=== PATIENT | female | born 1960 | race Caucasian/White ===

== ENCOUNTER 2017-09-03 14:35 | Inpatient (IN) | payer BC, OTHER ==
[2017-09-03] MEDS ORDERED: HUMULIN R 100 UNIT/ML VIAL SC ONE (14:36)
--- NOTE | 2017-09-03 15:10 | Emergency Department Record ---
History of Present Illness - General Chief Complaint: Chest Pain Stated Complaint: CHEST PAIN Time Seen by Provider: 09/03/17 14:55 Source: Patient Mode of Arrival: Ambulatory Limitations: No limitations - History of Present Illness Initial Comments: The patient is here due to upper mid back pain off and on for 4 days. The pain will last from minutes to hours and is not associated with nausea, vomiting, SOB , NARA, or sweating. She has had mild intermittent L arm and neck pain also but none now. There has been no injuries, fever, chills, cough, or any hx of similar problems. MD Complaint: Other Onset/Timin -: Days(s) Onset: During rest Pain Radiation: LUE, Neck, Other Severity: Mild Quality: Aching, Sharp Consistency: Constant, Intermittent Improves With: Nothing Worsens With: Nothing Treatments Prior to Arrival: None - Related Data Home Medications Medication Instructions Recorded Confirmed Last Taken No Home Med [NO HOME MEDS] 09/03/17 09/03/17 Unknown Allergies Allergy/AdvReac Type Severity Reaction Status Date / Time No Known Drug Allergies Allergy Verified 09/03/17 14:43 Travel Screening - Travel/Exposure Within Last 30 Days Have you traveled within the last 30 days?: No Review of Systems Constitutional: Denies: Chills, Fever Eyes: Denies: Eye discharge ENT: Denies: Congestion Respiratory: Denies: Cough, Dyspnea Past Medical History - SOCIAL HISTORY Smoking Status: Former smoker Alcohol Use: Occasional Drug Use: None - RESPIRATORY Hx Respiratory Disorders: No - CARDIOVASCULAR Hx Cardio Disorders: Yes Hx Hypertension: Yes - NEURO Hx Neuro Disorders: No - GI Hx GI Disorders: No - Hx Genitourinary Disorders: No - ENDOCRINE Hx Endocrine Disorders: Yes Hx Diabetes: Yes - MUSCULOSKELETAL Hx Musculoskeletal Disorders: No - PSYCH Hx Psych Problems: No - HEMATOLOGY/ONCOLOGY Hx Hematology/Oncology Disorders: No Family Medical History Any Significant Family History?: Yes Hx Cancer: Mother Hx Diabetes: Father Hx Heart Disease: Mother Hx Resp Disorders: Mother Physical Exam - General General Appearance: Alert, Oriented x3, Cooperative, No acute distress - Head Head exam: Atraumatic, Normocephalic, Normal inspection - Eye Eye exam: Normal appearance, PERRL - ENT Throat exam: Normal inspection. negative: Tonsillar erythema, Tonsillar exudate - Neck Neck exam: Normal inspection, Full ROM. negative: Tenderness - Respiratory Respiratory exam: Normal lung sounds bilaterally. negative: Respiratory distress - Cardiovascular Cardiovascular Exam: Regular rate, Normal rhythm, Normal heart sounds - GI/Abdominal GI/Abdominal exam: Soft, Normal bowel sounds. negative: Tenderness - Extremities Extremities exam: Normal inspection, Full ROM, Normal capillary refill. negative: Tenderness - Neurological Neurological exam: Alert, Normal gait. negative: Abnormal gait, Motor sensory deficit Course Vital Signs 09/03/17 09/03/17 14:38 14:54 Temperature 97.8 F Pulse Rate 79 Pulse Rate [ 76 Shank Taper ] Respiratory 18 20 Rate Blood Pressure 192/120 Blood Pressure 151/112 [Left Arm] Pulse Ox 97 96 - Reevaluation(s) Reevaluation #1: The patient is doing very well at this time. I did discuss the need for hospital admission due to the elevated blood sugar, elevated blood pressure, and atypical back and L arm pain. The patient agrees with the plan to admit to the hospital here at [facility]. I also did discuss the case with Dr. Hernandez and he does accept the admission. 09/03/17 16:22 Medical Decision Making - Data Complexity MDM Data: Labs Ordered and/or Reviewed, X-Ray Ordered and/or Reviewed, EKG Ordered and/or Reviewed - Lab Data Result diagrams: 09/03/17 14:50 09/03/17 14:50 - EKG Data -: EKG Interpreted by Me EKG: No Acute Changes - Radiology Data Radiology results: Report reviewed (CXR: Neg.) Disposition Disposition: Admit Clinical Impression: Chest pain, atypical Disposition: Still a Patient at [facility] Decision to Admit: Admit from ER Decision to Admit Date: 09/03/17 Decision to Admit Time: 16:24 Accepting Physician: Mary. Time Discussed w/Accepting Physician: 16:25 Condition: (2) Stable Time of Disposition: 16:25 Quality - Quality Measures Quality Measures: N/A - Blood Pressure Screening View Details: Yes Does Patient Have Any of the Following: Active Dx of HTN Blood Pressure Classification: Hypertensive Reading Systolic Measurement: 192 Diastolic Measurement: 120 Screening for High Blood Pressure: Patient Exclusion, Hx of HTN [G9744]
[2017-09-03 15:15] LABS: BASO % 0.4 % (0-6); EOS % 1.1 % (0-6); GRAN % 61.2 % (47-80); HEMATOCRIT 45.3 % (35.0-47.0); HEMOGLOBIN 15.5 gm/dl (11.6-16.0); LYMPH % 28.8 % (16-45); MEAN CELL VOLUME 85.8 fl (81-97); MEAN CORPUSCULAR HEMOGLOBIN 29.4 pg (27-33); MEAN CORPUSCULAR HGB CONC 34.2 g/dl (32-36); MEAN PLATELET VOLUME 12.2 fl (7.4-10.4); MONO % 8.5 % (0-9); PLATELET COUNT 239 K/uL (130-400); RED BLOOD COUNT 5.28 M/uL (3.80-5.40); RED CELL DISTRIBUTION WIDTH 12.9 % (11.5-14.5); WHITE BLOOD COUNT W/O DIFF 5.4 K/uL (4.2-12.2)
[2017-09-03 15:32] LABS: INR 1.1; PARTIAL THROMBOPLASTIN TIME 28.7 SECONDS (24.5-39.1); PROTHROMBIN TIME (PATIENT) 12.3 SECONDS (9.5-12.1)
[2017-09-03 15:34] LABS: BLOOD UREA NITROGEN 13 mg/dL (6-20); CREATININE 0.5 mg/dL (0.5-0.9); EST GLOMERULAR FILTRATION RATE > 60 mL/min
[2017-09-03 15:40] LABS: CREATINE PHOSPHOKINASE 40 U/L (26-192)
[2017-09-03 15:43] LABS: CKMB < 1.0 ng/mL (<3.77)
[2017-09-03 15:48] LABS: GLUCOSE,RANDOM 530 mg/dL (74-109)
[2017-09-03] MEDS ORDERED: ASPIRIN 325 MG TABLET PO ONE (16:02)
[2017-09-03] MEDS ORDERED: KETOROLAC 30 MG/ML VIAL IVP ONE (16:02)
[2017-09-03] MEDS ORDERED: HUMULIN R 100 UNIT/ML VIAL IV ONE (16:08)
[2017-09-03] MEDS ORDERED: HUMULIN R 100 UNIT/ML VIAL SQ ONE (16:09)
[2017-09-03] MEDS ORDERED: ACETAMINOPHEN 500 MG TABLET PO PRN (18:03)
[2017-09-03] MEDS ORDERED: KETOROLAC 30 MG/ML VIAL IVP PRN (18:03)
[2017-09-03] MEDS ORDERED: RANITIDINE HCL 150 MG TABLET PO PRN (18:08)
[2017-09-03] MEDS ORDERED: LISINOPRIL 20 MG TABLET PO ONE (18:09)
[2017-09-03] MEDS ORDERED: ALPRAZOLAM 0.25 MG TABLET PO PRN (18:09)
[2017-09-03] MEDS: METFORMIN 500 MG TABLET PO SCH (18:34)
[2017-09-03] MEDS: LISINOPRIL 10 MG TABLET PO SCH (18:39)
[2017-09-03] MEDS ORDERED: FLUCONAZOLE 100 MG TABLET PO ONE (18:48)
[2017-09-03 23:23] LABS: CKMB < 1.0 ng/mL (<3.77)
[2017-09-04 06:43] LABS: BASO % 0.4 % (0-6); EOS % 1.6 % (0-6); GRAN % 53.7 % (47-80); HEMATOCRIT 41.1 % (35.0-47.0); LYMPH % 32.8 % (16-45); MEAN CELL VOLUME 86.7 fl (81-97); MEAN CORPUSCULAR HEMOGLOBIN 29.5 pg (27-33); MEAN CORPUSCULAR HGB CONC 34.1 g/dl (32-36); MONO % 11.5 % (0-9); PLATELET COUNT 212 K/uL (130-400); RED BLOOD COUNT 4.74 M/uL (3.80-5.40); WHITE BLOOD COUNT W/O DIFF 5.5 K/uL (4.2-12.2)
[2017-09-04] MEDS: PANTOPRAZOLE SODIUM 40 MG TABLET PO SCH (06:44)
[2017-09-04 07:05] LABS: BLOOD UREA NITROGEN 14 mg/dL (6-20); CHOLESTEROL 185 mg/dL (<200); CREATININE 0.4 mg/dL (0.5-0.9); EST GLOMERULAR FILTRATION RATE > 60 mL/min; GLUCOSE,RANDOM 305 mg/dL (74-109); HDL CHOLESTEROL 46 mg/dL (40-60); TRIGLYCERIDES 139 mg/dL (<150); VLDL CHOLESTEROL 27 mg/dL (10.00-40.00)
[2017-09-04 07:09] LABS: CKMB < 1.0 ng/mL (<3.77)
[2017-09-04] MEDS: METFORMIN 500 MG TABLET PO SCH ×2 (07:51→17:56)
--- NOTE | 2017-09-04 07:51 | RADIOLOGY REPORT ---
EXAM: CHEST, TWO VIEWS HISTORY: INTERMITTENT DIFFICULTY IN BREATHING FOR ONE WEEK. SHARP UPPER BACK/ NECK PAIN FOR ONE WEEK. TECHNIQUE: Upright PA and lateral views of the chest were obtained. Comparison: Acute abdominal series dated 06/30/09. FINDINGS: The cardiomediastinal silhouette remains normal in size and configuration. The pulmonary vasculature is nondilated. The lungs and pleural spaces are clear. There are mild degenerative changes of the visualized spine. IMPRESSION: NO RADIOGRAPHIC EVIDENCE OF ACUTE CARDIOPULMONARY DISEASE. JOB NUMBER: [id number] [facility]
[2017-09-04] MEDS: NOVOLOG FLEXPEN (INSULIN ASPART) 100 UNITS/ML SQ SCH ×3 (07:52→17:41)
[2017-09-04] MEDS ORDERED: LEVEMIR FLEXTOUCH 100 UNIT/ML INSULIN PEN SQ ONE (09:16)
[2017-09-04] MEDS: LISINOPRIL 10 MG TABLET PO SCH (09:45)
--- NOTE | 2017-09-04 09:59 | History & Physical ---
History of Present Illness - Date of Service Date of Service for History & Physical: 09/04/17 - History of Present Illness Admitting Diagnosis: 1. Atypical chest and L arm pain. 2. Hypergylcemia History of Present Illness: Mrs. Hilario is a 57 y/o female here with complaint of left shoulder pain which began several months ago. The patient says that she initially felt it on the right shoulder but then began to notice a shift to the mid-back,neck and left shoulder. She denies any falls or injury to the back and has not had any headaches. The patient has tried using herbal supplements for relief of pain which were not helpful. On arrival to the ED the patient was noted to have significant elevation in serum glucose and her blood pressure was also elevated. The patient has a 24 year history of type II diabetes mellitus and has been non-compliant with medications for the last 1 year. She says that she has been trying herbal and traditional medications for glucose control. She has not seen a doctor in over a year since her previous PCP left town. The patient was admitted for further workup to rule out acute coronary syndrome , BP control and hyperglycemia. On evaluation at bedside this morning the patient appears to be resting comfortably and in no acute distress. Travel Screening - Travel/Exposure Within Last 30 Days Have you traveled within the last 30 days?: No - Travel/Exposure Within Last Year Have you traveled outside the [place] in the last year?: No - Additonal Travel Details Have you been exposed to anyone with a communicable illness?: No - Travel Symptoms Symptom Screening: None Review of Systems Constitutional: Denies: Chills, Fever Eyes: Denies: Eye discharge ENT: Denies: Congestion Respiratory: Denies: Cough, Dyspnea Past Medical History - SOCIAL HISTORY Smoking Status: Former smoker Alcohol Use: Rare Drug Use: None - RESPIRATORY Hx Respiratory Disorders: No - CARDIOVASCULAR Hx Cardio Disorders: Yes Hx Hypertension: Yes - NEURO Hx Neuro Disorders: No - GI Hx GI Disorders: No - Hx Genitourinary Disorders: No - ENDOCRINE Hx Endocrine Disorders: Yes Hx Diabetes: Yes - MUSCULOSKELETAL Hx Musculoskeletal Disorders: No - PSYCH Hx Psych Problems: No - HEMATOLOGY/ONCOLOGY Hx Hematology/Oncology Disorders: No Family Medical History Any Significant Family History?: Yes Hx Cancer: Mother Hx Diabetes: Father Hx Heart Disease: Mother Hx Resp Disorders: Mother H&P Meds/Allergies - Allergies Allergies: Allergies Allergy/AdvReac Type Severity Reaction Status Date / Time No Known Drug Allergies Allergy Verified 09/03/17 14:43 - Home Medications Home Medications Medication Instructions Recorded Confirmed Last Taken No Home Med [NO HOME MEDS] 09/03/17 09/03/17 Unknown - Active Medications Active Medications: Current Medications Acetaminophen (Tylenol 500mg Tab) 500 mg PO Q6H PRN PRN Reason: PAIN/TEMP Alprazolam (Xanax) 0.25 mg PO QHS PRN PRN Reason: SLEEP Last Admin: 09/03/17 21:06 Dose: 0.25 mg Aspirin (Ecotrin (Ec)) 325 mg PO DAILY [facility] Last Admin: 09/04/17 09:45 Dose: 325 mg Insulin Aspart (Novolog Flexpen) 1 unit SQ TIDINS [facility] PRN Reason: Protocol Last Admin: 09/04/17 07:52 Dose: 14 unit Ketorolac Tromethamine (Toradol) 15 mg IVP Q8H PRN PRN Reason: Analgesia Lisinopril (Zestril) 10 mg PO DAILY [facility] Last Admin: 09/04/17 09:45 Dose: 10 mg Metformin HCl (Glucophage Ir) 500 mg PO BIDWM [facility] Last Admin: 09/04/17 07:51 Dose: 500 mg Pantoprazole Sodium (Protonix) 40 mg PO DAILYAC [facility] Last Admin: 09/04/17 06:44 Dose: 40 mg Ranitidine HCl (Zantac) 150 mg PO BID PRN PRN Reason: GI UPSET Physical Exam - Vital Signs Vital Signs: Vital Signs - Last 24 Hrs Temp Pulse Pulse Resp BP BP Pulse Ox 09/04/17 08:00 98.1 F 79 16 136/71 97 09/04/17 04:00 97.4 F L 48 L 15 118/69 98 09/04/17 00:03 98.4 F 93 H 16 142/72 97 09/03/17 21:00 80 16 09/03/17 20:03 97.6 F 60 18 132/73 96 09/03/17 18:11 85 16 - General General Appearance: Alert, Oriented x3, Cooperative, No acute distress Limitations: No limitations - Head Head exam: Atraumatic, Normocephalic, Normal inspection - Eye Eye exam: Normal appearance, PERRL - ENT Throat exam: Normal inspection. negative: Tonsillar erythema, Tonsillar exudate - Neck Neck exam: Normal inspection, Full ROM. negative: Tenderness - Respiratory Respiratory exam: Normal lung sounds bilaterally. negative: Respiratory distress - Cardiovascular Cardiovascular Exam: Regular rate, Normal rhythm, Normal heart sounds Peripheral Pulses: 3+: Radial (R), Radial (L), Dorsalis Pedis (R), Dorsalis Pedis (L) - GI/Abdominal GI/Abdominal exam: Soft, Normal bowel sounds. negative: Tenderness - Extremities Extremities exam: Normal inspection, Full ROM, Normal capillary refill. negative: Tenderness - Neurological Neurological exam: Alert, Normal gait. negative: Abnormal gait, Motor sensory deficit Results - Labs Result Diagrams: 09/04/17 06:20 09/04/17 06:20 Labs Last 24 Hours: Laboratory Results - last 24 hr 09/03/17 09/03/17 09/04/17 22:50 23:16 06:00 WBC RBC Hgb Hct MCV MCH MCHC RDW Plt Count MPV Gran % Lymphocytes % Monocytes % Eosinophils % Basophils % Sodium Cancelled Potassium Cancelled Chloride Cancelled Carbon Dioxide Cancelled Anion Gap Cancelled BUN Cancelled Creatinine Cancelled Estimated GFR Cancelled POC Glucose 322 H Random Glucose Cancelled Hemoglobin A1c Calcium Cancelled CK-MB (CK-2) < 1.0 Troponin T < 0.010 Triglycerides Cholesterol LDL Cholesterol Measurd VLDL Cholesterol HDL Cholesterol 09/04/17 09/04/17 09/04/17 06:00 06:20 06:20 WBC 5.5 RBC 4.74 Hgb 14.0 Hct 41.1 MCV 86.7 MCH 29.5 MCHC 34.1 RDW 13.0 Plt Count 212 MPV 12.0 H Gran % 53.7 Lymphocytes % 32.8 Monocytes % 11.5 H Eosinophils % 1.6 Basophils % 0.4 Sodium 137 Potassium 4.1 Chloride 101 Carbon Dioxide 25.0 Anion Gap 11.0 BUN 14 Creatinine 0.4 L Estimated GFR > 60 POC Glucose Random Glucose 305 H Hemoglobin A1c Calcium 9.1 CK-MB (CK-2) < 1.0 Troponin T < 0.010 Triglycerides Cancelled 139 Cholesterol Cancelled 185 LDL Cholesterol Measurd Cancelled 143.0 H VLDL Cholesterol Cancelled 27 HDL Cholesterol Cancelled 46 09/04/17 06:20 WBC RBC Hgb Hct MCV MCH MCHC RDW Plt Count MPV Gran % Lymphocytes % Monocytes % Eosinophils % Basophils % Sodium Potassium Chloride Carbon Dioxide Anion Gap BUN Creatinine Estimated GFR POC Glucose Random Glucose Hemoglobin A1c 13.50 H Calcium CK-MB (CK-2) Troponin T Triglycerides Cholesterol LDL Cholesterol Measurd VLDL Cholesterol HDL Cholesterol VTE H&P Assessment - Risk for VTE Risk for VTE: No Risk Level: Very Low Risk Assessment Date: 09/04/17 Risk Assessment Time: 10:03 VTE Orders Placed or Will Be Placed: No VTE Reason for No Prophylaxis: Not Indicated Plan - Detailed Diagnosis and Plan (1) Chest pain, atypical Current Visit: Yes Status: Acute Base Code: R07.89 - OTHER CHEST PAIN Comment: - Patient presents with a left chest wall/back pain with radiation to the arm. - ECG negative for any acute changes, no changes on tele, CXR: negative, Troponins: inderterminant x 2 to r/o ACS. (2) Diabetes mellitus type II, uncontrolled Current Visit: Yes Status: Chronic Qualifiers: Diabetes mellitus complication detail: with polyneuropathy Base Code: E11.65 - TYPE 2 DIABETES MELLITUS WITH HYPERGLYCEMIA Comment: - pt has been non-compliant and has not taken medications in a long time. - serum glucose 530, CBG 322 --> 305, Hba1c 13.5, other labs stable - currently on Novolog moerate dose sliding scale and Metformin 500mg BID. Will start basal insulin a 15 unit QD and statin. - CBG ACHS, Diabetic diet ordered, Diabetic education (3) Hypertensive urgency Current Visit: Yes Status: Acute Base Code: I16.0 - HYPERTENSIVE URGENCY Comment: - no evidence of end organ damage - BP 192/120 on admission. Lisinopril 20mg given last night with a precipitous decrease in BP. - Will decrease ISELA dose to 10mg QD (4) Full code status Current Visit: Yes Status: Acute Base Code: Z78.9 - OTHER SPECIFIED HEALTH STATUS Comment: - FULL CODE - Disposition D/C tomorrow morning with followup outpatient.
[2017-09-04] MEDS ORDERED: ASPIRIN 325 MG TAB ENTERIC-COATED PO SCH (10:00)
[2017-09-04] MEDS ORDERED: LORAZEPAM 0.5 MG TABLET PO PRN (17:24)
[2017-09-04] MEDS ORDERED: LEVEMIR FLEXTOUCH 100 UNIT/ML INSULIN PEN SQ SCH (22:00)
[2017-09-05] MEDS: PANTOPRAZOLE SODIUM 40 MG TABLET PO SCH (06:14)
[2017-09-05 07:36] LABS: BLOOD UREA NITROGEN 16 mg/dL (6-20); CREATININE 0.4 mg/dL (0.5-0.9); EST GLOMERULAR FILTRATION RATE > 60 mL/min; GLUCOSE,RANDOM 214 mg/dL (74-109)
--- NOTE | 2017-09-05 08:10 | Discharge Summary ---
Providers Discharge Summary Date: 09/05/17 Date of admission: 09/03/17 17:36 Attending physician: SAMANTHA CABRAL Physical Exam - Vital Signs Vital Signs: Vital Signs - Last 24 Hrs Temp Pulse Pulse Resp BP Pulse Ox 09/05/17 04:00 97.9 F 63 16 108/63 96 09/05/17 00:00 97.9 F 66 16 114/66 95 09/04/17 21:00 86 16 09/04/17 20:00 98.1 F 63 16 118/68 97 09/04/17 16:00 97.6 F 65 16 129/74 97 09/04/17 11:41 97.9 F 70 16 118/67 98 09/04/17 09:00 80 16 - General General Appearance: Alert, Oriented x3, Cooperative, No acute distress Limitations: No limitations - Head Head exam: Atraumatic, Normocephalic, Normal inspection - Eye Eye exam: Normal appearance, PERRL - ENT Throat exam: Normal inspection. negative: Tonsillar erythema, Tonsillar exudate - Neck Neck exam: Normal inspection, Full ROM. negative: Tenderness - Respiratory Respiratory exam: Normal lung sounds bilaterally. negative: Respiratory distress - Cardiovascular Cardiovascular Exam: Regular rate, Normal rhythm, Normal heart sounds Peripheral Pulses: 3+: Radial (R), Radial (L), Dorsalis Pedis (R), Dorsalis Pedis (L) - GI/Abdominal GI/Abdominal exam: Soft, Normal bowel sounds. negative: Tenderness - Extremities Extremities exam: Normal inspection, Full ROM, Normal capillary refill. negative: Tenderness - Neurological Neurological exam: Alert, Normal gait. negative: Abnormal gait, Motor sensory deficit Hospitalization - Hospitalization Admission Diagnosis: 1. Atypical chest and L arm pain. 2. Hypergylcemia - Problem List/Discharge Diagnosis (1) Chest pain, atypical Status: Acute Base Code: R07.89 - OTHER CHEST PAIN Comment: - Patient presents with a left chest wall/back pain with radiation to the arm. - ECG negative for any acute changes, no changes on tele, CXR: negative, Troponins: inderterminant x 2 to r/o ACS. (2) Diabetes mellitus type II, uncontrolled Status: Chronic Discharge Diagnosis: Diabetes mellitus complication detail: with polyneuropathy Base Code: E11.65 - TYPE 2 DIABETES MELLITUS WITH HYPERGLYCEMIA Comment: - pt has been non-compliant and has not taken medications in a long time. - serum glucose 530, CBG 322 --> 305 --> 255--> [id number] 13.5, other labs stable - currently on Novolog moerate dose sliding scale and Metformin 500mg BID. Will start basal insulin a 15 unit QD and statin. - CBG ACHS, Diabetic diet ordered, Diabetic education (3) Hypertensive urgency Status: Acute Base Code: I16.0 - HYPERTENSIVE URGENCY Comment: - no evidence of end organ damage - BP 192/120 on admission. Lisinopril 20mg given last night with a precipitous decrease in BP. - Will decrease ISELA dose to 10mg QD (4) Full code status Status: Acute Base Code: Z78.9 - OTHER SPECIFIED HEALTH STATUS Comment: - FULL CODE - Disposition D/C tomorrow morning with followup outpatient. - Hospitalization Course Disposition: Home, Self-Care Hospital Course: Mrs. Hilario is a 57 y/o female here with complaint of left shoulder pain which began several months ago. The patient says that she initially felt it on the right shoulder but then began to notice a shift to the mid-back,neck and left shoulder. She denies any falls or injury to the back and has not had any headaches. The patient has tried using herbal supplements for relief of pain which were not helpful. On arrival to the ED the patient was noted to have significant elevation in serum glucose and her blood pressure was also elevated. The patient has a 24 year history of type II diabetes mellitus and has been non-compliant with medications for the last 1 year. She says that she has been trying herbal and traditional medications for glucose control. She has not seen a doctor in over a year since her [facility] The patient was admitted for further workup to rule out acute coronary syndrome , BP control and hyperglycemia. On day two of the admission the patient's serum glucose trended down on Levemir 15 units, sliding scale insulin and Metformin. Hab1c measured 13.5%. monitor and storage bin tender did not show any cardiac rhythm abnormalities and her shoulder pain subsided. She was given an additional 10 units of Levemir in the evening and on day #3 fasting glucose was 214. Evaluation at bedside the morning of discharge the patient appears to be comfortable without complaint. The patient had diabetic education by nursing and I explained the plan of care for her regarding the use of oral hypoglycemics and insulin. She was seen by social work for transition of care coordination and is to follow up in [facility] in 1-2 weeks for further management. Abnormal Labs: Abnormal Lab Results 09/03/17 09/04/17 09/04/17 Range/Units 23:16 06:20 06:20 MPV 12.0 H (7.4-10.4) fl Monocytes % 11.5 H (0-9) % Potassium (3.4-4.5) mmol/L Creatinine 0.4 L (0.5-0.9) mg/dL POC Glucose 322 H (70-110) mg/dL Random Glucose 305 H (74-109) mg/dL Hemoglobin A1c (4.0-6.00) % LDL Cholesterol Measurd 143.0 H (0-100) mg/dL 09/04/17 09/04/17 09/04/17 Range/Units 06:20 11:30 17:04 MPV (7.4-10.4) fl Monocytes % (0-9) % Potassium (3.4-4.5) mmol/L Creatinine (0.5-0.9) mg/dL POC Glucose 315 H 133 H (70-110) mg/dL Random Glucose (74-109) mg/dL Hemoglobin A1c 13.50 H (4.0-6.00) % LDL Cholesterol Measurd (0-100) mg/dL 09/04/17 09/05/17 Range/Units 22:23 07:13 MPV (7.4-10.4) fl Monocytes % (0-9) % Potassium 4.9 H (3.4-4.5) mmol/L Creatinine 0.4 L (0.5-0.9) mg/dL POC Glucose 251 H (70-110) mg/dL Random Glucose 214 H (74-109) mg/dL Hemoglobin A1c (4.0-6.00) % LDL Cholesterol Measurd (0-100) mg/dL Condition at Discharge: (2) Stable Discharge Medications - Discharge Medications Prescriptions: Insulin Detemir [Levemir Flextouch] 15 unit SQ QHS #1 syringe Lisinopril 10 mg PO DAILY #30 tab Metformin HCl [Glucophage Ir] 500 mg PO BIDWM #60 tablet Home Medications: Ambulatory Orders Insulin Detemir [Levemir Flextouch] 15 unit SQ QHS #1 syringe 09/05/17 [Last Taken Unknown] Lisinopril 10 mg PO DAILY #30 tab 09/05/17 [Last Taken Unknown] Metformin HCl [Glucophage Ir] 500 mg PO BIDWM #60 tablet 09/05/17 [Last Taken Unknown] Discharge Plan - Discharge Instructions Diet at Discharge: Diabetic Diet, Low Fat, Low Cholesterol Instructions: Chest Pain (ED), How to Check Your Blood Sugar (DC), Type 2 Diabetes in Adults (DC) Additional Instructions: Prescriptions called to [facility] - [facility] within 1-2 weeks as scheduled, September 14 at 11:00am - Metformin 500mg twice daily with meals, Levemir 15 units at night subcutaneous - Check blood sugar three times per day before meals as instructed Quality Measures - Quality Measures Quality Measures: Documentation of Current Medications in Medical Record, Screening for High Blood Pressure and F/U Documented - Current Medications Quality Measure: Measure #130: Documentation of Current Medications Documentation of Current Medications: <Current Medications Documented/Reviewed> [G8427] - Blood Pressure Screening Quality Measure: Screening for High Blood Pressure and Follow-Up Documented Does Patient Have Any of the Following: Active Dx of HTN Blood Pressure Classification: Hypertensive Reading Systolic Measurement: 192 Diastolic Measurement: 120 Screening for High Blood Pressure: Patient Exclusion, Hx of HTN [G9744] - Elder Abuse Suspicion Index EASI Reference Information: Jaimee RENDON, Bob C, Marjorie D, Leyda Matos.Development and validation of a tool to assist physicians identification of elder abuse: The Elder Abuse Suspicion Index (EASI ). Journal of Elder Abuse and Neglect, 2008; 20 (3): 276-300.
[2017-09-05] MEDS: METFORMIN 500 MG TABLET PO SCH (08:34)
[2017-09-05] MEDS: NOVOLOG FLEXPEN (INSULIN ASPART) 100 UNITS/ML SQ SCH (08:35)
== END 2017-09-05 09:01 | disposition home or self-care (01) | DRG 313 ==
LOC: ER 14:35 → UNDOADMOB 17:13 → MEDSURG 17:13 → OBSVTOIN 17:36
PROVIDERS: ADMIT Internal Medicine; ATTEND Internal Medicine
DX: R07.89 Other chest pain (principal); E11.65 Type 2 diabetes mellitus with hyperglycemia; Z79.4 Long term (current) use of insulin; I16.0 Hypertensive urgency; Z91.19 Patient's noncompliance with other medical treatment and regimen; Z79.84 Long term (current) use of oral hypoglycemic drugs; I10 Essential (primary) hypertension; Z87.891 Personal history of nicotine dependence
CPT/HCPCS: 36416; 71046; 80048; 80061; 82550; 82553; 82948; 83036; 84484; 85025; 85379; 85610; 85730; 93005; 93010; 96372; 96374; 96375; 99223; 99239; 99285; J1885

== ENCOUNTER 2018-03-25 09:02 | Emergency (ER) | payer OTHER ==
--- NOTE | 2018-03-25 09:26 | Emergency Department Record ---
History of Present Illness - General Chief Complaint: Headache Migraine Stated Complaint: FLOWER Time Seen by Provider: 03/25/18 09:07 Source: Patient, RN notes reviewed Mode of Arrival: Ambulatory - History of Present Illness Initial Comments: sharp pain in the right occipital area of the scalp and last for seconds a shooting pain. MD Complaint: Headache Onset/Timin -: Hour(s) Onset Description: Sudden Location: Occipital, Right Severity scale (1-10): 8 Quality: Sharp Consistency: Intermittent Improves With: Nothing Worsens With: None Treatments Prior to Arrival: None - Related Data Previous Rx's Medication Instructions Recorded Prednisone [Prednisone 10Mg] 10 mg PO ASDIR #30 tab 03/25/18 Allergies Allergy/AdvReac Type Severity Reaction Status Date / Time No Known Drug Allergies Allergy Verified 03/25/18 09:09 Travel Screening - Travel/Exposure Within Last 30 Days Have you traveled within the last 30 days?: No - Travel/Exposure Within Last Year Have you traveled outside the [place] in the last year?: No - Additonal Travel Details Have you been exposed to anyone with a communicable illness?: No - Travel Symptoms Symptom Screening: None Review of Systems Reviewed: No additional complaints except as noted below Constitutional: Reports: As per HPI. Denies: Chills, Fever, Malaise, Night sweats, Weakness, Weight change Eyes: Reports: As per HPI. Denies: Eye discharge, Eye pain, Photophobia, Vision change ENT: Reports: As per HPI. Denies: Congestion, Dental pain, Ear pain, Epistaxis , Hearing loss, Throat pain Respiratory: Reports: As per HPI. Denies: Cough, Dyspnea, Hemoptysis, Stridor, Wheezes Cardiovascular: Reports: As per HPI. Denies: Arrhythmia, Chest pain, Dyspnea on exertion, Edema, Murmurs, Orthopnea, Palpitations, Paroxysmal nocturnal dyspnea, Rheumatic Fever, Syncope Endocrine: Reports: As per HPI. Denies: Fatigue, Heat or cold intolerance, Polydipsia, Polyuria Gastrointestinal: Reports: As per HPI. Denies: Abdominal pain, Constipation, Diarrhea, Hematemesis, Hematochezia, Melena, Nausea, Vomiting Genitourinary: Reports: As per HPI. Denies: Abnormal menses, Discharge, Dyspareunia, Dysuria, Frequency, Hematuria, Incontinence, Retention, Urgency Musculoskeletal: Reports: As per HPI. Denies: Arthralgia, Back pain, Gout, Joint swelling, Myalgia, Neck pain Skin: Reports: As per HPI. Denies: Bruising, Change in color, Change in hair/ nails, Lesions, Pruritus, Rash Neurological: Reports: As per HPI. Denies: Abnormal gait, Confusion, Headache, Numbness, Paresthesias, Seizure, Tingling, Tremors, Vertigo, Weakness Psychiatric: Reports: As per HPI. Denies: Anxiety, Auditory hallucinations, Depression, Homicidal thoughts, Suicidal thoughts, Visual hallucinations Hematological/Lymphatic: Reports: As per HPI. Denies: Anemia, Blood Clots, Easy bleeding, Easy bruising, Swollen glands Past Medical History - SOCIAL HISTORY Smoking Status: Former smoker Alcohol Use: Occasional Drug Use: None - RESPIRATORY Hx Respiratory Disorders: No - CARDIOVASCULAR Hx Cardio Disorders: Yes Hx Hypertension: Yes - NEURO Hx Neuro Disorders: No - GI Hx GI Disorders: No - Hx Genitourinary Disorders: No - ENDOCRINE Hx Endocrine Disorders: Yes Hx Diabetes: Yes - MUSCULOSKELETAL Hx Musculoskeletal Disorders: No - PSYCH Hx Psych Problems: No - HEMATOLOGY/ONCOLOGY Hx Hematology/Oncology Disorders: No Family Medical History Any Significant Family History?: Yes Hx Cancer: Mother Hx Diabetes: Father Hx Heart Disease: Mother Hx Resp Disorders: Mother Physical Exam - General General Appearance: Alert, Oriented x3, Cooperative, No acute distress - Head Head exam: Normal inspection - Eye Eye exam: Normal appearance, PERRL Pupils: Normal accommodation - ENT ENT exam: Normal exam, Mucous membranes moist, Normal external ear exam, Normal orophraynx, TM's normal bilaterally Ear exam: Normal external inspection. negative: External canal tenderness Nasal Exam: Normal inspection. negative: Discharge, Sinus tenderness Mouth exam: Normal external inspection, Tongue normal Teeth exam: Normal inspection. negative: Dental caries Throat exam: Normal inspection. negative: Tonsillar erythema, Tonsillar exudate - Neck Neck exam: Normal inspection, Full ROM. negative: Tenderness - Respiratory Respiratory exam: Normal lung sounds bilaterally. negative: Respiratory distress - Cardiovascular Cardiovascular Exam: Regular rate, Normal rhythm, Normal heart sounds - GI/Abdominal GI/Abdominal exam: Soft, Normal bowel sounds. negative: Tenderness - Rectal Rectal exam: Deferred - exam: Deferred - Extremities Extremities exam: Normal inspection, Full ROM, Normal capillary refill. negative: Tenderness - Back Back exam: Reports: Normal inspection, Full ROM. Denies: Muscle spasm, Rash noted, Tenderness - Neurological Neurological exam: Alert, Normal gait, Oriented X3, Reflexes normal - Psychiatric Psychiatric exam: Normal affect, Normal mood - Skin Skin exam: Dry, Intact, Normal color, Warm Course Vital Signs 03/25/18 09:11 Temperature 97.6 F Pulse Rate 71 Respiratory 16 Rate Blood Pressure 174/80 Pulse Ox 98 - Reevaluation(s) Reevaluation #1: 09/discussed effects of glucose with prednisone and may have to increase levimir 2-3 units if glucose goes up10/07 09:34 Disposition Clinical Impression: Occipital neuritis Disposition: Home, Self-Care Condition: (1) Good Instructions: Acute Headache (ED), Peripheral Neuropathy (ED) Additional Instructions: follow up with family in 3 days Prescriptions: Prednisone [Prednisone 10Mg] 10 mg PO ASDIR #30 tab Time of Disposition: 09:35 Quality - Quality Measures Quality Measures: N/A - Blood Pressure Screening Does Patient Have Any of the Following: No, Active Dx of HTN Blood Pressure Classification: Pre-Hypertensive BP Reading Systolic Measurement: 174 Diastolic Measurement: 80 Screening for High Blood Pressure: Patient Exclusion, Hx of HTN [[id number]]
[2018-03-25] MEDS ORDERED: PREDNISONE 20 MG TAB PO ONE (09:32)
== END 2018-03-25 09:48 | disposition home or self-care (01) ==
LOC: ER 09:02
DX: M54.81 Occipital neuralgia (principal); R51 Headache; E11.9 Type 2 diabetes mellitus without complications; I10 Essential (primary) hypertension; Z87.891 Personal history of nicotine dependence
CPT/HCPCS: 99282; J7512